=== PATIENT | male | born 1945 | race Caucasian/White ===

== ENCOUNTER 2022-03-02 17:31 | Inpatient (IN) | payer MEDICARE ==
[~2022-03-02] VITALS: Ht 180.3 cm; Wt 95.7 kg
[~2022-03-02 17:31] MED LIST: ASPIRIN EC81 MG PO; ATORVASTATIN CA20 MG PO; BRILINTA 90 MG90 MG PO; IMDUR ER TAB 3030 MG PO; LOPRESSOR 50 MG50 MG PO; PRINIVIL10 MG PO
[2022-03-02 19:01] LABS: RED BLOOD COUNT 4.79 M/UL (4.20-5.50)
[2022-03-03 02:33] LABS: HEMOGLOBIN 14.2 gm/dl (14.0-17.5); RED BLOOD COUNT 4.36 M/UL (4.20-5.50); WHITE BLOOD COUNT 10.1 K/UL (4.5-11.0)
[2022-03-03 03:27] LABS: BUN/CREATININE RATIO 14 (0-10)
--- NOTE | 2022-03-03 03:55 | NUR ---
PATIENT PULLED HIS TOILET CORD, CHRISTIN PEREZ RESPONDED AND CALLED OUT FOR HELP. UPON ARRIVAL TO THE ROOM, PATIENT WAS PASSING OUT, HELD UP BY LAG SCREWER AND HIS BROTHER. WE PRESSED STAFF ASSIST AND GOT THE PATIENT BACK INTO THE BED. HE WAS NOT RESPONDING, A RAPID RESPONSE WAS CALLED. WAS NOTIFIED AND PATIENT TRANSFERRED TO ICU.
[2022-03-03 04:07] LABS: HEMOGLOBIN 14.7 gm/dl (14.0-17.5); RED BLOOD COUNT 4.41 M/UL (4.20-5.50); WHITE BLOOD COUNT 12.2 K/UL (4.5-11.0)
--- NOTE | 2022-03-03 05:31 | NUR ---
LATE ENTRY 03/03/22 0400 TOOK REPORT FROM KAITLYN RN
[2022-03-03] MEDS ORDERED: ALPRAZOLAM1 MG PO (08:49)
[2022-03-03] MEDS ORDERED: GABAPENTIN800 MG PO (08:50)
[2022-03-03] MEDS ORDERED: ECOTRIN81 MG PO (08:53)
[2022-03-04 05:05] LABS: HEMOGLOBIN 13.8 gm/dl (14.0-17.5); RED BLOOD COUNT 4.2 M/UL (4.20-5.50)
[2022-03-04 06:49] LABS: ADENOVIRUS F 40/41 Not Detected (Negative); ASTROVIRUS Not Detected (Negative); CAMPYLOBACTER Not Detected (Negative); CRYPTOSPORIDIUM Not Detected (Negative); E.COLI 0157 Not Detected (Negative); ENTAMOEBA HISTOLYTICA Not Detected (Negative); ENTEROAGGREGATIVE E.COLI (EAEC Not Detected (Negative); ENTEROPATHOGENIC E.COLI (EPEC) Not Detected (Negative); ENTEROTOXIGENIC E.COLI (ETEC) Not Detected (Negative); GIARDIA LAMBLIA Not Detected (Negative); NOROVIRUS GI/GII Not Detected (Negative); PLESIOMONAS SHIGELLOIDES Not Detected (Negative); ROTOVIRUS A Not Detected (Negative); SALMONELLA Not Detected (Negative); SAPOVIRUS Not Detected (Negative); SHIG/ENTEROINVAS.ECOLI (EIEC) Not Detected (Negative); SHIGA-LIK TOX.PRO.E.COLI (STEC Not Detected (Negative); VIBRIO Not Detected (Negative); VIBRIO CHOLERAE Not Detected (Negative); YERSINIA ENTEROCOLITICA Not Detected (Negative)
[2022-03-04 08:29] LABS: CLOSTRIDIUM DIFFICILE TOX A/B Not Detected (Negative)
[2022-03-05 05:15] LABS: RED BLOOD COUNT 4.32 M/UL (4.20-5.50); WHITE BLOOD COUNT 11.7 K/UL (4.5-11.0)
[2022-03-05 05:39] LABS: BUN/CREATININE RATIO 11 (0-10)
[2022-03-06 05:27] LABS: HEMOGLOBIN 13.1 gm/dl (14.0-17.5); RED BLOOD COUNT 3.97 M/UL (4.20-5.50)
[2022-03-07] MEDS ORDERED: ATORVASTATIN CA20 MG PO (09:28)
[2022-03-07] MEDS ORDERED: MULTAQ 400 MG400 MG PO (09:28)
[2022-03-07] MEDS ORDERED: ELIQUIS 5 MG TAB5 MG PO (09:28)
[2022-03-07] MEDS ORDERED: SOTALOL80 MG PO (11:07)
== END 2022-03-07 12:05 | disposition home or self-care (01) | DRG 312 ==
LOC: ER1 17:31 → CDU 20:30 → CCU 20:30 → M/S 22:33 → CCU 03-03 03:28 → PROG CARE 03-03 19:59
PROVIDERS: Internal Medicine; Physician Assistant; ADMIT Internal Medicine
PROC: B24BZZZ Ultrasonography of Heart with Aorta (ICD-10-PCS; principal; 2022-03-03)
DX: I95.1 Orthostatic hypotension (principal); R07.89 Other chest pain; I49.5 Sick sinus syndrome; Z20.822 Contact with and (suspected) exposure to COVID-19; E78.5 Hyperlipidemia, unspecified; F17.220 Nicotine dependence, chewing tobacco, uncomplicated; I25.119 Atherosclerotic heart disease of native coronary artery with unspecified angina pectoris; N18.30 Chronic kidney disease, stage 3 unspecified; Z96.653 Presence of artificial knee joint, bilateral; Z96.642 Presence of left artificial hip joint; I12.9 Hypertensive chronic kidney disease with stage 1 through stage 4 chronic kidney disease, or unspecified chronic kidney disease; I44.0 Atrioventricular block, first degree; R19.7 Diarrhea, unspecified; I48.0 Paroxysmal atrial fibrillation; E87.6 Hypokalemia; R53.81 Other malaise; F41.9 Anxiety disorder, unspecified; Z79.01 Long term (current) use of anticoagulants; Z79.82 Long term (current) use of aspirin; Z95.5 Presence of coronary angioplasty implant and graft; Z82.49 Family history of ischemic heart disease and other diseases of the circulatory system; Z88.2 Allergy status to sulfonamides; I25.2 Old myocardial infarction; Z91.14 Patient's other noncompliance with medication regimen; Z98.1 Arthrodesis status; Z90.49 Acquired absence of other specified parts of digestive tract; Z98.42 Cataract extraction status, left eye; Z98.41 Cataract extraction status, right eye; Z98.890 Other specified postprocedural states; Z87.442 Personal history of urinary calculi
CPT/HCPCS: ECHO; 36415; 70450; 71045; 78452; 80048; 80053; 80061; 81001; 82550; 82553; 82962; 83036; 83605; 83690; 83735; 83880; 84132; 84439; 84443; 84484; 85025; 85027; 85610; 87507; 93005; 93017; 93270; 93306; 96372; 96374; 96375; 97116-GP-CQ; 97161; 99285; A9502; C9113; G0378; J0461; J1650; J2785; U0002